=== PATIENT | female | born 1995 | race American Indian/Alaskan Native ===

== ENCOUNTER 2017-08-16 18:39 | Emergency (ER) | payer MEDICAID ==
[2017-08-16 19:20] VITALS: TEMP 99.6
[2017-08-16 21:50] LABS: BASO # 0.04 K/mm3 (0.0-2.0); BASO % 0.5 % (0.0-3.0); EOS # 0.1 (0.0-0.7); EOS % 0.9 % (1.5-5.0); GRAN # 5.05 (1.4-6.5); GRAN % 66.1 % (50.0-68.0); HEMOGLOBIN 11.7 g/dL (12.0-16.0); LYMPH % 25.6 % (22.0-35.0); MEAN CELL VOLUME 80.4 fl (80.0-105.0); MEAN CORPUSCULAR HEMOGLOBIN 26.4 pg (25.0-35.0); MEAN CORPUSCULAR HGB CONC 32.9 g/dl (31.0-37.0); MEAN PLATELET VOLUME 10.8 fl (7.0-11.0); MONO # 0.5 (0.1-0.6); MONO % 6.9 % (1.0-6.0); RBC 4.43 10^6/uL (3.5-6.1); RED CELL DISTRIBUTION WIDTH 14.6 % (11.5-14.5); WHITE BLOOD COUNT 7.7 10^3/ul (4.5-11.0)
[2017-08-16 21:55] LABS: ALB/GLOB RATIO 1.3 (1.1-1.8); ALBUMIN 4.5 g/dL (3.0-4.8); ALT/SGPT 30 U/L (7-56); AST/SGOT 23 U/L (14-36); BLOOD UREA NITROGEN 15 mg/dL (7-21); CALCIUM 9.6 mg/dL (8.4-10.5); GFR AFRICAN-AMERICAN > 60; GFR NON-AFRICAN AMERICAN > 60; PH,URINE 6.5 (4.7-8.0); URINE APPEARANCE TURBID (CLEAR); URINE BILIRUBIN NEGATIVE (NEGATIVE); URINE BLOOD LARGE (NEGATIVE); URINE COLOR YELLOW (YELLOW); URINE GLUCOSE (UA) NEGATIVE (NEGATIVE); URINE LEUKOCYTE ESTERASE SMALL Leu/uL (NEGATIVE); URINE PROTEIN TRACE mg/dL (<30 mg/dL); URINE UROBILINOGEN 0.2 E.U./dL (<1 E.U./dL)
[2017-08-16 22:04] LABS: URINE BACTERIA FEW (NEG)
--- NOTE | 2017-08-16 22:46 | ED PDOC ---
Arrival/HPI <Deejay Panchal - Last Filed: 08/16/17 22:56> - General Historian: Patient <AzaelZacariasDay T - Last Filed: 08/16/17 23:58> - General Chief Complaint: Abdominal Pain Time Seen by Provider: 08/16/17 20:22 - History of Present Illness Narrative History of Present Illness (Text): 08/16/17 22:45 21-year-old female presents today with concerns for abdominal cramping and large blood clot. Patient states she was 5 days late on her period and patient states she started to develop a little bit of abdominal cramping and then noticed that she passed a very large hard blood clot patient was concerned that she might be and was concerned about this large blood clot which has never happened to her before. Patient denies fevers or chills. No chest pain or shortness of breath. Patient denies vomiting or diarrhea. Patient denies urinary symptoms. No other complaints (Day Addison) Past Medical History - Provider Review Nursing Documentation Reviewed: Yes - Travel History Have you recently traveled outside [place] w/in the past 3 mons?: No - Infectious Disease Hx of Infectious Diseases: None - Reproductive Menopause: No - Psychiatric Hx Substance Use: No - Surgical History Other/Comment: scolosis - Anesthesia Hx Anesthesia: Yes Hx Anesthesia Reactions: No <Day Addison - Last Filed: 08/16/17 23:58> Family/Social History - Physician Review Nursing Documentation Reviewed: Yes Family/Social History: Unknown Family HX Smoking Status: Unknown If Ever Smoked Hx Alcohol Use: Yes Frequency of alcohol use: Socially Hx Substance Use: No <Day Addison - Last Filed: 08/16/17 23:58> Allergies/Home Meds <Deejay Panchal - Last Filed: 08/16/17 22:56> <Day Addison - Last Filed: 08/16/17 23:58> Allergies/Adverse Reactions: Allergies No Known Allergies Allergy (Verified 08/16/17 19:20) Review of Systems - Review of Systems Constitutional: absent: Fatigue, Fevers Respiratory: absent: SOB, Cough Cardiovascular: absent: Chest Pain, Palpitations Gastrointestinal: Abdominal Pain. absent: Constipation, Diarrhea, Nausea, Vomiting Genitourinary Female: Vaginal Bleeding. absent: Dysuria, Frequency, Hematuria, Vaginal Discharge Musculoskeletal: absent: Arthralgias, Back Pain, Neck Pain Skin: absent: Rash, Pruritis Neurological: absent: Headache, Dizziness Psychiatric: absent: Anxiety, Depression, Suicidal Ideation <Day Addison - Last Filed: 08/16/17 23:58> Physical Exam Vital Signs Reviewed: Yes Temperature: Afebrile Blood Pressure: Normal Pulse: Tachycardic Respiratory Rate: Normal Appearance: Positive for: Well-Appearing, Non-Toxic, Comfortable Pain Distress: None Mental Status: Positive for: Alert and Oriented X 3 - Systems Exam Head: Present: Atraumatic Mouth: Present: Moist Mucous Membranes Neck: Present: Normal Range of Motion Respiratory/Chest: Present: Clear to Auscultation, Good Air Exchange. No: Respiratory Distress, Accessory Muscle Use Cardiovascular: Present: Regular Rate and Rhythm, Normal S1, S2. No: Murmurs Abdomen: No: Tenderness, Distention, Peritoneal Signs, Rebound, Guarding Genitourinary/Pelvic Exam: Present: Normal External Genitalia, Other ( chaparoned by rex mendez). No: Vaginal Discharge, Vaginal Bleeding, Vaginal Lesions, Adenexal Tenderness, Adenexal Mass, Cervical Motion Tendernes, Cervical os Closed, Odor Back: Present: Normal Inspection. No: Midline Tenderness, Paraspinal Tenderness Upper Extremity: Present: Normal ROM Lower Extremity: Present: Normal ROM Neurological: Present: GCS=15, Speech Normal Skin: Present: Warm, Dry, Normal Color. No: Rashes Psychiatric: Present: Alert, Oriented x 3 <Day Addison - Last Filed: 08/16/17 23:58> Vital Signs Temp Pulse Resp BP Pulse Ox 08/16/17 19:15 99.6 F 104 H 20 123/69 99 Medical Decision Making <Deejay Panchal - Last Filed: 08/16/17 22:56> <Day Addison - Last Filed: 08/16/17 23:58> ED Course and Treatment: 08/16/17 22:48 Patient is nontoxic well appearing in no distress. pt with abdominal crampying and 5 days late on period. now with large clot. CBC: wnl CMP: wnl Beta hCG: negative Urinalysis:+ blood, small leukocytes, 5-10wbcs. Ultrasound transvaginal;FINDINGS: Uterus/cervix: The endometrium is heterogeneous in echogenicity and thickened. This measures 1.5 cm in thickness. The uterus is retroverted. The uterus measures 8.1 x 4.0 x 5.5 cm. No myometrial mass. Right ovary: The right ovary measures 3.4 x 2.0 x 2.6 cm. Multiple hypoechoic follicles are visualized within the right ovary. Physiologic blood flow. Left ovary: Within the left ovary, there is a 1.0 x 1.6 x 1.6 cm hypoechoic simple cyst. The left ovary measures 3.8 x 3.0 x 3.6 cm. Physiologic blood flow. Free fluid: No free fluid. Bladder: Poorly visualized. IMPRESSION: 1. The endometrium is heterogeneous in echogenicity and thickened. This may be due to endometrial hyperplasia, although additional pathology cannot be excluded. Further clinical evaluation and follow-up ultrasonography are recommended. 2. Within the left ovary, there is a 1.0 x 1.6 x 1.6 cm hypoechoic simple cyst. 3. The uterus is retroverted. Patient reassessment: Patient nontoxic well-appearing in NO distress with stable vital signs. Discussed all the results the patient. advised f/u with the residence counselor within the next 2 days regarding US findings. advised immediate return if symptoms worsen,persist or if new symptoms develop. will cover patient with keflex for uti. Patient verbalizes understanding of discharge instructions and need for immediate followup. all aspects of this case were discussed the attending of record. Impression:vaginal bleeding Tylenol every 4 hours as needed for pain keflex; 1 capsule twice daily x 7 days. Increase fluids Followup with the human geography instructor within the next 2 days Return immediately if symptoms worsen persist or if new symptoms develop: High fevers, heavy bleeding, severe abdominal pain, vomiting, diarrhea, dizziness or weakness or any other concerning symptoms develop. (Day Addison) - Lab Interpretations Lab Results: 08/16/17 20:38 08/16/17 20:38 Lab Results 08/16/17 20:38: WBC 7.7, RBC 4.43, Hgb 11.7 L, Hct 35.6 L, MCV 80.4, MCH 26.4, MCHC 32.9, RDW 14.6 H, Plt Count 317, MPV 10.8, Gran % 66.1, Lymph % (Auto) 25.6 , Harrison % (Auto) 6.9 H, Eos % (Auto) 0.9 L, Baso % (Auto) 0.5, Gran # 5.05, Lymph # (Auto) 2.0, Harrison # (Auto) 0.5, Eos # (Auto) 0.1, Baso # (Auto) 0.04 08/16/17 20:38: Beta HCG, Quant < 2.39 08/16/17 20:38: Sodium 140, Potassium 4.0, Chloride 104, Carbon Dioxide 27, Anion Gap 12, BUN 15, Creatinine 0.8, Est GFR ( Amer) > 60, Est GFR (Non- Af Amer) > 60, Random Glucose 79, Calcium 9.6, Total Bilirubin 0.2, AST 23, ALT 30, Alkaline Phosphatase 104, Total Protein 8.0, Albumin 4.5, Globulin 3.5, Albumin/Globulin Ratio 1.3 08/16/17 20:38: Urine Color Yellow, Urine Appearance Turbid, Urine pH 6.5, Ur Specific [place] 1.025, Urine Protein Trace H, Urine Glucose (UA) Negative, Urine Ketones Negative, Urine Blood Large H, Urine Nitrate Negative, Urine Bilirubin Negative, Urine Urobilinogen 0.2, Ur Leukocyte Esterase Small H, Urine RBC 1 - 3, Urine WBC 5 - 10, Ur Epithelial Cells 10 - 12, Urine Bacteria Few - RAD Interpretation Radiology Orders: 08/16/17 21:12 TRANSVAGINAL [US] Stat - PA / [facility] / Resident Statement MD/DO has reviewed & agrees with the documentation as recorded. <Deejay Panchal - Last Filed: 08/16/17 22:56> Disposition/Present on Arrival <Deejay Panchal - Last Filed: 08/16/17 22:56> - Present on Arrival Any Indicators Present on Arrival: No History of DVT/PE: No History of Uncontrolled Diabetes: No Urinary Catheter: No History of Decub. Ulcer: No History Surgical Site Infection Following: None - Disposition Have Diagnosis and Disposition been Completed?: Yes Disposition Time: 23:39 Patient Plan: Discharge <Day Addison - Last Filed: 08/16/17 23:58> - Disposition Diagnosis: Abdominal pain, Vaginal bleeding, Urinary tract infection Disposition: HOME/ ROUTINE Patient Problems: Current Active Problems Problem Status Onset Abdominal pain Acute Urinary tract infection Acute Vaginal bleeding Acute Condition: GOOD Discharge Instructions (ExitCare): Urinary Tract Infection, Adult (DC), Acute Abdomen (Belly Pain), Adult (DC) Additional Instructions: Tylenol every 4 hours as needed for pain keflex; 1 capsule twice daily x 7 days. Increase fluids Followup with the human geography instructor within the next 2 days Return immediately if symptoms worsen persist or if new symptoms develop: High fevers, heavy bleeding, severe abdominal pain, vomiting, diarrhea, dizziness or weakness or any other concerning symptoms develop. Prescriptions: Cephalexin [Keflex] 500 mg PO BID #14 capsule Referrals: Esteban Lewis MD [Staff Provider] - Follow up with primary Julius Ovalles DO [Staff Provider] - [facility] - Follow up with primary Forms: [employer] ([place]), WORK NOTE
--- NOTE | 2017-08-16 23:07 | US ---
EXAM: US Pelvis Complete, Transabdominal US Pelvis, Transvaginal EXAM DATE/TIME: 08/16/2017 9:12 PM CLINICAL HISTORY: The patient age is 21 years old and is female; Pain; Pelvic pain; Additional info: Pain/cramping Facility exam id and description: Us transve transvaginal TECHNIQUE: Real-time transabdominal and transvaginal pelvic ultrasound (complete) with image documentation. Transvaginal imaging was used for better evaluation of the endometrium and adnexa. COMPARISON: No relevant prior studies available. FINDINGS: Uterus/cervix: The endometrium is heterogeneous in echogenicity and thickened. This measures 1.5 cm in thickness. The uterus is retroverted. The uterus measures 8.1 x 4.0 x 5.5 cm. No myometrial mass. Right ovary: The right ovary measures 3.4 x 2.0 x 2.6 cm. Multiple hypoechoic follicles are visualized within the right ovary. Physiologic blood flow. Left ovary: Within the left ovary, there is a 1.0 x 1.6 x 1.6 cm hypoechoic simple cyst. The left ovary measures 3.8 x 3.0 x 3.6 cm. Physiologic blood flow. Free fluid: No free fluid. Bladder: Poorly visualized. IMPRESSION: 1. The endometrium is heterogeneous in echogenicity and thickened. This may be due to endometrial hyperplasia, although additional pathology cannot be excluded. Further clinical evaluation and follow-up ultrasonography are recommended. 2. Within the left ovary, there is a 1.0 x 1.6 x 1.6 cm hypoechoic simple cyst. 3. The uterus is retroverted.
[2017-08-16 23:51] VITALS: BP 100/72; PULSE 89; RESP 18; O2SAT 100
== END 2017-08-16 23:45 | disposition home or self-care (01) ==
LOC: MERGE 18:39 → ED 18:39
DX: N39.0 Urinary tract infection, site not specified (principal); N93.9 Abnormal uterine and vaginal bleeding, unspecified; R10.9 Unspecified abdominal pain